=== PATIENT | female | born 1980 | race Caucasian/White ===

== ENCOUNTER 2018-01-14 14:41 | Emergency (ER) | payer MEDICAID ==
[~2018-01-14] VITALS: Ht 149.9 cm; Wt 61.2 kg
[2018-01-14 14:47] VITALS: BP 119/65
--- NOTE | 2018-01-14 15:10 | NUR ---
PATIENT PRESENTS TO ED WITH COMPLAINTS OF BURNING UPON URINATION AND BLOOD IN URINE. PATIENT STATES SHE WOKE UP THIS MORNING TO USE THE BATHROOM AND FELT THE BURNING UPON URINATION AND SAW BLOOD IN THE TOILET. DENIES N/V/D; SKIN IS PINK/WARM/DRY; AAOX4 WITH EVEN AND STEADY GAIT; LUNGS CLEAR BL; HR EVEN AND REGULAR; PT DENIES ANY FEVER, CP, SOB, OR COUGH AT THIS TIME; PATIENT STATES PAIN OF 5/10 AT THIS TIME; VSS; PATIENT POSITIONED FOR COMFORT; HOB ELEVATED; BEDRAILS UP X1; BED DOWN. ER MD MADE AWARE OF PT STATUS.
[2018-01-14 15:59] LABS: APPEARANCE,URINE TURBID (CLEAR); BILIRUBIN,URINE NEGATIVE (NEGATIVE); BLOOD, URINE 3+ (NEGATIVE); COLOR,URINE YELLOW (YELLOW); LEUKOCYTE ESTERASE ,URINE NEGATIVE (NEGATIVE); NITRITE, URINE NEGATIVE (NEGATIVE); UGLUCOSE TRACE (NEGATIVE)
[2018-01-14 16:47] LABS: RBC,URINE >100 /HPF (0-5)
[2018-01-14] MEDS ORDERED: cefTRIAXone 1,000 MG in LIDOCAINE MPF 1% - **ER/OR** 2.1 ML IM ONE (18:05)
[2018-01-14 19:25] VITALS: BP 119/65
--- NOTE | 2018-01-14 19:25 | NUR ---
Patient discharged with v/s stable. Written and verbal after care instructions given and explained. Patient alert, oriented and verbalized understanding of instructions. Ambulatory with steady gait. All questions addressed prior to discharge. ID band removed. Patient advised to follow up with PMD. Rx of NITROFURANTOIN AND PHENAZOPYRIDINE HYDROCHLORIDE given. Patient educated on indication of medication including possible reaction and side effects. Opportunity to ask questions provided and answered.
== END 2018-01-14 19:25 | disposition home or self-care (01) ==
LOC: MED 14:41
DX: N39.0 Urinary tract infection, site not specified (principal)
CPT/HCPCS: 81001; 81025; 87086; 96372; 99284; J0696; J2001

== ENCOUNTER 2018-08-03 01:42 | Emergency (ER) | payer SELFPAY ==
[~2018-08-03] VITALS: Ht 149.9 cm; Wt 61.2 kg
[2018-08-03] MEDS ORDERED: HYDROcodone/APAP 10/325 MG 1 TAB TAB PO ONE (01:50)
[2018-08-03 01:55] VITALS: BP 112/60
[2018-08-03] MEDS ORDERED: HYDROcodone/APAP 5/325 MG 1 TAB TAB PO ONE (02:15)
[2018-08-03 03:04] LABS: APPEARANCE,URINE SLIGHTLY CLOUDY (CLEAR); BILIRUBIN,URINE NEGATIVE (NEGATIVE); BLOOD, URINE 4+ (NEGATIVE); COLOR,URINE YELLOW (YELLOW); LEUKOCYTE ESTERASE ,URINE 4+ (NEGATIVE); NITRITE, URINE NEGATIVE (NEGATIVE); UGLUCOSE NEGATIVE (NEGATIVE)
[2018-08-03 03:07] LABS: RBC,URINE TOO NUMEROUS TO COUN /HPF (0-5); WBC,URINE TOO MANY TO COUNT /HPF (0-5)
[2018-08-03 03:15] VITALS: BP 105/68
== END 2018-08-03 03:15 | disposition home or self-care (01) ==
LOC: MED 01:42
DX: N39.0 Urinary tract infection, site not specified (principal)
CPT/HCPCS: 81001; 81025; 87086; 99283